=== PATIENT | female | born 1990 | race Caucasian/White ===

== ENCOUNTER 2019-04-07 10:12 | Inpatient (IN) | payer MEDICAID ==
[~2019-04-07] VITALS: Ht 157.5 cm; Wt 71.3 kg
[~2019-04-07 10:12] MED LIST: DENIES; IBUP-1545 PO; PERCOCET PO; PREN1TAB31 PO
[2019-04-08] MEDS ORDERED: LACTATED RINGER'S 1,000 ML IV SCH (10:52)
[2019-04-08 11:00] VITALS: Ht 157.5 cm; Wt 71.3 kg
[2019-04-08] MEDS ORDERED: OXYTOCIN 30 UNITS/LR 500 ML IV PRN ×2 (11:00→16:00)
[2019-04-08] MEDS ORDERED: METHYLERGONOVINE 0.2 MG INJ IM PRN (11:00)
[2019-04-08] MEDS ORDERED: OXYTOCIN 30 UNITS/LR 500 ML IV SCH ×2 (11:00→15:56)
[2019-04-08] MEDS ORDERED: MISOPROSTOL 200 MCG TAB PR PRN ×2 (11:00→16:00)
[2019-04-08] MEDS ORDERED: CEFAZOLIN 2 GM/50 ML (PMX) 50 ML IVPB SCH (11:00)
[2019-04-08] MEDS ORDERED: CARBOPROST 250 MCG INJ IM PRN ×2 (11:00→16:00)
[2019-04-08 11:48] VITALS: BP 119/76; PULSE 75; RESP 18
--- NOTE | 2019-04-08 12:55 | PREAC ---
Date/Time of Note Date/Time of Note DATE: 04/08/19 TIME: 12:54 Anesthesia Eval and Record Evaluation Time Pre-Procedure Interview DATE: 04/08/19 TIME: 12:54 Age 28 Sex female NPO: 8 hrs Preoperative diagnosis IUP Planned procedure Repeat Csection Past Medical History Past Medical History: Includes GI: Obesity : : Surgery & Anesthesia Issues No known issue Meds Anticoagulation: No Beta Karolina within 24 hr: No Reason Beta Karolina not given: Pt. not on B-Karolina Active Scripts Oxycodone Hcl/Acetaminophen (Percocet) 1 Tab Tab, 2 TAB PO Q4H PRN for PAIN LEVEL 6-10, #30 TAB 0 Refills Prov:NICKIE WESTBROOK MD 04/19/15 Ibuprofen* (Ibuprofen*) 800 Mg Tab, 800 MG PO Q8, #20 TAB 0 Refills Prov:NICKIE WESTBROOK MD 04/19/15 Reported Medications Vits #90-Iron Fum-FA ( Formula) 1 Each Tablet, 1 TAB PO DAILY, #1 TAB 04/17/15 [Denies] No Conflict Check 12/17/10 Current Medications Lactated Ringer's 1,000 ml @ 125 mls/hr Q8H IV Last administered on 04/08/19at 11:59; Admin Dose 125 MLS/HR; Start 04/08/19 at 10:52 Cefazolin Sodium/ Dextrose 50 ml @ 100 mls/hr ONCE IVPB ; Start 04/08/19 at 11:00 Oxytocin/Lactated Ringer's 500 ml @ 125 mls/hr POST IV ; Start 04/08/19 at 11:00 Oxytocin/Lactated Ringer's 500 ml @ 0 mls/hr ONCE PRN IV .VAGINAL BLEEDING; Start 04/08/19 at 11:00 Methylergonovine Maleate (Methergine) 0.2 mg ONCE PRN IM .VAGINAL BLEEDING; Start 04/08/19 at 11:00 Carboprost Tromethamine (Hemabate) 250 mcg ONCE PRN IM .VAGINAL BLEEDING; Start 04/08/19 at 11:00 Misoprostol (Cytotec) 1,000 mcg ONCE PRN DC .VAGINAL BLEEDING; Start 04/08/19 at 11:00 Meds reviewed: Yes Allergies Coded Allergies: No Known Drug Allergies (Verified Allergy, Mild, 12/17/10) Allergies Reviewed: Yes Labs/Studies Labs Reviewed: Reviewed by anesthesiologist Result Diagram: 04/08/19 1052 Laboratory Tests 04/08/19 10:52 Blood Bank Test 04/08/19 10:52 Blood Type A POSITIVE Rh Immune Globulin Candidate NO test: Positive Studies: ECG Pre-procedure Exam Last vitals Vital Signs Date Temp Pulse Resp B/P (MAP) Pulse Ox O2 O2 Flow FiO2 Time Delivery Rate 04/08/19 98.5 75 18 119/76 Room Air 11:48 (90) Airway: Adequate mouth opening, Adequate thyromental dist Mallampati: Mallampati II Teeth: Normal Lung: Normal Heart: Normal ASA Physical Status ASA physical status: 2 Emergency: None Planned Anesthetic Neuraxial: Spinal Planned Pain Management Sub-arachniod narcotics, Parenteral pain med Pre-operative Attestations Prior to commencing anesthesia and surgery, the patient was re-evaluated, there was verification of: *The patient's identity *The results of appropriate recent lab work and preoperative vital signs *The above evaluation not changing prior to induction *Anesthetic plan, risk benefits, alternative and complications discussed with patient/family; questions answered; patient/family understands, accepts and wishes to proceed. ZACKERY GONZALEZ MD Apr 08, 2019 12:55
[2019-04-08] MEDS ORDERED: OXYTOCIN 30 UNITS/LR 500 ML BAG IV ONE (13:19)
[2019-04-08] MEDS ORDERED: morphine SULFATE/PF (10 MG/10 ML) INJ ONE (13:20)
[2019-04-08] MEDS ORDERED: ONDANSETRON 4 MG INJ ONE (13:20)
[2019-04-08] MEDS ORDERED: OXYTOCIN 10 UNIT INJ ONE (13:20)
[2019-04-08] MEDS ORDERED: PHENYLephrine 10 MG INJ ONE (13:43)
[2019-04-08] MEDS ORDERED: METOCLOPRAMIDE 10 MG INJ ONE (14:21)
[2019-04-08] MEDS ORDERED: DIPHENHYDRAMINE 50 MG INJ IV PRN ×2 (15:00→19:00)
[2019-04-08] MEDS ORDERED: morphine 2 MG INJ IV PRN ×2 (15:00→19:00)
[2019-04-08] MEDS ORDERED: ONDANSETRON 4 MG INJ IV PRN ×2 (15:00→19:00)
[2019-04-08] MEDS ORDERED: NALOXONE (0.4 MG/ML) INJ IV PRN ×2 (15:00→19:00)
[2019-04-08] MEDS ORDERED: KETOROLAC 30 MG INJ IV PRN ×3 (15:00→19:00)
--- NOTE | 2019-04-08 15:00 | PAC ---
Date/Time of Note Date/Time of Note DATE: 04/08/19 TIME: 14:59 Post-Anesthesia Notes Post-Anesthesia Note Last documented vital signs Vital Signs Date Temp Pulse Resp B/P (MAP) Pulse Ox O2 O2 Flow FiO2 Time Delivery Rate 04/08/19 98.5 75 18 119/76 Room Air 11:48 (90) Activity: WNL Respiratory function: WNL Cardiovascular function: WNL Mental status: Baseline Pain reasonably controlled: Yes Hydration appropriate: Yes Nausea/Vomiting absent: Yes Comments BP:122/56, P:72, Spo2:100%, T:98,8 ZACKERY GONZALEZ MD Apr 08, 2019 15:00
--- NOTE | 2019-04-08 15:47 | HP ---
Date/Time of Note Date/Time of Note DATE: 04/08/19 TIME: 15:44 OB - History Hx of Present Free Text/Dictation April 08, 2019 Chief Complaint: Patient for repeat section with BTL : 4 Para: 3 Care: Good Care Other Concerns: 28-year-old G4, P3 with IUP at 39 weeks and 2 days and history of x3 here today for repeat section and bilateral tubal sterilization. Patient has care with Dr.Sedi machuca, who was assigned to pa for coverage. No complication during . ALAN April 11, 2019. Consent for bilateral tubal sterilization Past Family/Social History * Past Medical, Surgical, Family and Obstetric Histories reviewed from chart. Blood Type: A+ Rubella: immune RPR/VDRL: Negative GBS Status: Unknown HBsAG: Negative OB Admission Exam Vital Signs Vital Signs Vital Signs Date Temp Pulse Resp B/P (MAP) Pulse Ox O2 O2 Flow FiO2 Time Delivery Rate 04/08/19 98.5 75 18 119/76 Room Air 11:48 (90) Physical Exam HEENT: WNL Heart: Rhythm Normal Lungs: Clear Abdomen: WNL Extremities: Normal Reflexes: Normal Cervical Dilatation: None Effacement: 0% Station: -2 Membranes: Intact Heart Rate: 130's Accelerations: Accelerations Present Decelerations: No Decelerations Varibility: Moderate Contractions on Admission: < 5 Minutes Apart Intensity: Mild Last 72 hours Lab Results CBC & BMP 04/08/19 10:52 OB Assessment/Plan Other Assessment: IUP at 39 weeks and 2 days History of section x3 Scheduled for repeat section with bilateral tubal sterilization Risk and benefits of surgery including risk of infection bleeding damage to surrounding structures including bowel or bladder risk of anesthesia risk of blood transfusion including but not limited to blood borne infection including HIV, hepatitis B and C and transfusion reaction discussed with the patient in detail. Patient confirms that she desires to have sterilization. Risk of sterilization including but not limited to failure less than 1% as well as ectopic in case of failure discussed with the patient. Patient verbalized understanding. Consent was signed. Or anesthesia and nursing staff was notified. All questions were answered to patient with satisfaction. Procedure repeat section and BTL RAKESH CLARKE MD Apr 08, 2019 15:47
--- NOTE | 2019-04-08 15:56 | OPR ---
Operative Report Planned Procedure Free Text/Dictation April 08, 2019 Procedure date Apr 08, 2019 Procedure(s) repeat section bilateral tubal sterilization Performed by see signature line Robotic Machine Tender Production: BETSY CHAVEZ MD Anesthesiologist: ZACKERY GONZALEZ MD Pre-procedure diagnosis 1. IUP at 39 weeks and 2 days 2. History of section x3 3. Desires bilateral tubal sterilization repeat [id number] Anesthesia Type: [id number] spinal Post-Procedure Post-procedure diagnosis Same Thin lower uterine segment Adhesions of Parietal peritoneum to the anterior abdominal wall and lower uterine segment Findings Live Baby [Boy], Apgars [9,9] and [], weight 7 lbs and 3 oz, position vertex presentation Adhesions of parietal peritoneum to the lower uterine segment and anterior a bdominal wall Lysis of adhesion was done Normal uterus ovaries and tubes Estimated Blood Loss: 500 - 600 mls Specimen(s) Cord blood Grafts/Implant(s) none Complication(s) none Pt Condition post procedure: stable Disposition: PACU Procedure Description 28-year-old G4, P3 with IUP at 39 weeks and 2 days and care with Dr. vito Bacon, has been scheduled for repeat section with bilateral tubal sterilization. Risk and benefit of procedure discussed with the patient including risk of infection, bleeding, damage to surrounding structures including bowel and bladder and risk of blood transfusion including but not limited to blood borne infection including HIV, hepatitis B and C and transfusion reaction. Risk of anesthesia as well as risk of tubal sterilization including risk of failure and risk of ectopic in case of failure as well as risk of regret discussed with patient. Patient verbalized understanding. All questions were answered. Consent was signed. She received 2 g Ancef prior to be taken to the OR. She was taken to the OR placed in the dorsal supine position with a leftward tilt. Timeout procedure was completed. Prepped and draped in a sterile fashion. After reassurance about adequate spinal anesthesia a Pfannenstiel skin incision in the area of prior skin incision was made and was carried down to the underlying layer of fascia using scalpel Bovie. In the superior aspect of fascial incision was grasped using [place], was elevated and was dissected off of the rectus muscle sharply using Bovie. Inferior aspect of the fascial incision in a similar fashion grasped using [place] clamp elevated and was dissected off of the parameters muscle in a similar fashion. Rectus muscle was dissected in the midline. Parietal peritoneum was identified. It was grasped using a Dory clamp. A careful attention to underlying structures entered using scalpel. Intra-abdominal cavity entered without any complication. Adhesion bands of the parietal peritoneum to the lower uterine segment and anterior abdominal wall was identified and was gently with careful attention to the structures around was lysed. Then the lower uterine segment was identified. Lower uterine segment was noted to be thin. It was entered using scalpel. Amniotic sac was ruptured. Clear amniotic fluid noted. Baby was in vertex presentation. The head was grasped and was brought up to the incision and while assistant professor of geography was applying fundal pressure the head was delivered in anterior shoulder posterior shoulder and the rest of the body delivered without any complication. Nose and mouth was suctioned. Delayed cord clamp was obtained after 3o seconds Baby was then handed to the waiting NICU team. Cord blood was obtained. Baby was a boy with 9 and 9 and weight 7 pounds and 3 pounds. Then the placenta was delivered manually intact and complete. Uterus was cleared of all clots and debris's. Lower uterine segment repaired in 2 layers using 1-0 Monocryl. Of note the uterus was exteriorized. Ovaries and tubes were noted to be normal. After reassurance about the uterine incision hemostasis then procedure proceeded with performing bilateral tubal sterilization. First the right tube was grasped using back-up clamp and after making a small window in the avascular area of the nasal salpinx area using plain gut proximal and distal stump of the tube was doubly ligated. Then salpingectomy performed in the right side and this resected segment of the tube was sent to pathology. Reassurance about the hemostasis of the stump with 2+ reassured. Procedure proceeded in a similar fashion in the left side as well. Hemostasis was noted to be complete. Incision rechecked in reassured that has adequate hemostasis. Gutters were cleared of all clots and debris's. Then the uterus was returned back to the abdomen. Parietal peritoneum was repaired using 2-0 Vicryl in a continuous fashion. Hemostasis of muscle obtained. Then the rectus muscle was reapproximated using 1-0 Vicryl in a continuous fashion. Irrigation of suppleness tissue performed using normal saline. Suppleness tissue reapproximated in interrupted fashion using 2-0 plain gut. The skin was reapproximated using 3-0 Monocryl in a subcortical fashion. In the end then was applied over the incision. Fundus was firm. Hemostasis was complete. Patient tolerated the procedure well. Sponge, needle counts were correct x2. Patient was then transferred to recovery room in stable condition. RAKESH CLARKE MD Apr 08, 2019 15:56
[2019-04-08] MEDS ORDERED: NACL 0.9% 3 ML SYG IV SCH (16:00)
[2019-04-08 18:25] VITALS: BP 115/74; PULSE 80; RESP 17
[2019-04-08 19:50] VITALS: BP 107/62; PULSE 72; RESP 18
[2019-04-08] MEDS ORDERED: IBUPROFEN 800 MG TAB PO SCH (22:00)
[2019-04-08 23:50] VITALS: BP 114/71; PULSE 74; RESP 19
[2019-04-09] MEDS: LACTATED RINGER'S 1,000 ML IV SCH ×2 (01:37→21:42)
[2019-04-09 03:50] VITALS: BP 102/56; PULSE 74; RESP 18
[2019-04-09 08:00] VITALS: BP 100/57; PULSE 78; RESP 16
[2019-04-09] MEDS: LANOLIN HPA 1 PKT TOP PRN (08:15)
[2019-04-09 12:00] VITALS: BP 109/62; PULSE 89; RESP 89
[2019-04-09 16:00] VITALS: BP 108/71; PULSE 97; RESP 16; RESP 18
[2019-04-09] MEDS: HYDROCODONE/APAP (5/325) TAB PO PRN ×2 (16:25→20:56)
[2019-04-09 19:52] VITALS: BP 114/77; PULSE 80; RESP 18
[2019-04-09] MEDS: IBUPROFEN 600 MG TAB PO SCH (19:52)
[2019-04-10] MEDS: IBUPROFEN 600 MG TAB PO SCH ×6 (00:02→23:51)
[2019-04-10] MEDS: LACTATED RINGER'S 1,000 ML IV SCH (01:00)
[2019-04-10 03:45] VITALS: BP 123/81; PULSE 72; RESP 19
[2019-04-10 08:00] VITALS: BP 120/77; PULSE 66; RESP 18
[2019-04-10] MEDS: LANOLIN HPA 1 PKT TOP PRN (08:45)
[2019-04-10] MEDS: HYDROCODONE/APAP (5/325) TAB PO PRN ×2 (08:45→12:59)
[2019-04-10] MEDS ORDERED: BISACODYL 10 MG SUPP PR PRN (15:30)
[2019-04-10 16:15] VITALS: BP 123/86; PULSE 73; RESP 18
--- NOTE | 2019-04-10 17:29 | PN ---
Date/Time of Note Date/Time of Note DATE: 04/10/19 TIME: 17:29 OB Subjective Subjective Subjective Subjective: Patient without complaints. Tolerating a regular diet. Breast-feeding. Lochia within normal limits. + ambulating. + Flatus. Objective: Vital signs within normal limits. H/H: 9.3/.1 General: No apparent distress. Abdomen: Fundus firm and at umbillicus Incision: C/D/I Extremities nontender to palpation. Assessment/plan: 1. day RCS/BTL #1. routine pp care. 2. Anemia acute blood loss-expectant. 3. Skin-wound consult. VANESSA GARCIA MD Apr 10, 2019 17:29
[2019-04-10] MEDS ORDERED: OXYCODONE/ACETAMINOPHEN (5/325) TAB PO PRN (17:30)
[2019-04-10 19:20] VITALS: BP 110/70; RESP 19
[2019-04-11 04:00] VITALS: BP 110/70; PULSE 63; RESP 20
[2019-04-11] MEDS: IBUPROFEN 600 MG TAB PO SCH ×2 (05:42→12:21)
[2019-04-11 08:00] VITALS: BP 115/82; PULSE 72; RESP 16
[2019-04-11] MEDS: OXYCODONE/ACETAMINOPHEN (5/325) TAB PO PRN ×2 (08:08→13:40)
[2019-04-11] MEDS ORDERED: FERROUS SULFATE (EC) 325 MG TAB PO SCH (09:00)
--- NOTE | 2019-04-11 14:02 | DS ---
Date/Time of Note Date/Time of Note DATE: 04/11/19 TIME: 14:02 Obstetrical Discharge Record Final Diagnosis Final Diagnosis: Term delivered Other Final Diagnosis Subjective: Patient without complaints. Tolerating regular diet. ambulating. voiding. +flatus. Objective: Vital signs stable and wnl H/H: 10.7/32.4 General: No apparent distress. Abdomen: Fundus firm two fingerbreadths below umbillicus Incision: C/D/I Extremities nontender to palpation. Assessment/plan: 1. day#3 cs btl-T4 P3 presented to the hospital at 39 weeks and 2 days for repeat section and bilateral tubal ligation. Underwent a section and bilateral tubal sterilization on 04/08/2019. Her hospital course was uncomplicated. 2. Anemia acute blood loss-ferrous sulfate Condition on Discharge Physical Assessment Patient Condition: Stable VANESSA GARCIA MD Apr 11, 2019 14:02
[2019-04-11] MEDS ORDERED: IBUP-1542 PO (14:04)
[2019-04-11] MEDS ORDERED: FER325 PO (14:04)
--- NOTE | 2019-04-12 18:20 | DELSUM ---
Delivery Summary A-C Datetime Report Generated by CPN: 04/12/2019 18:20 DELIVERY PERSONNEL Repair Miller: Lomeli, Rafaela MATERNAL INFORMATION Delivery Anesthesia: Spinal Medications in Delivery: ANCEF, ZITHROMAX, ZOFRAN Delivery QBL (ml): 600 Placenta Cultured: No Maternal Complications: None LABOR SUMMARY EDC: 04/13/2019 00:00 No. Babies in Womb: 1 Attempted: No Labor Anesthesia: None LABOR INFORMATION Reason for Induction: Not Applicable Group B Beta Strep: Not Done Antibiotics # of Doses: 2 Antibiotics Time of Last Dose: 04/08/2019 13:40 Steroids Given: None Reason Steroids Not Administered: Not Applicable MEMBRANES Membranes Rupture Method: Artificial Rupture of Membranes: 04/08/2019 13:58 Length of Rupture (hr): 0.00 Amniotic Fluid Color: Clear Amniotic Fluid Amount: Moderate Amniotic Fluid Odor: None STAGES OF LABOR Stage 3 hr: 0 Stage 3 min: 1 CSECTION DELIVERY Primary Indication: Repeat Elective Secondary Indication: >2 Previous CSections CSection Urgency: Elective CSection Incidence: Repeat Labor: N/A Elective: Elective CSection Incision: Lower Uterine Transverse Sterilization Procedure: [place] BABY A INFORMATION Infant Delivery Date/Time: 04/08/2019 13:58 Method of Delivery: Born in Route : No : N/A Forceps: N/A Vacuum Extraction: N/A Shoulder Dystocia : No SHOULDER DYSTOCIA BABY A Infant Delivery Date/Time: 04/08/2019 13:58 PRESENTATION/POSITION BABY A Presentation: Cephalic Cephalic Presentation: Vertex Vertex Position: Left Occipital Anterior Breech Presentation: N/A PLACENTA INFORMATION BABY A Placenta Delivery Time : 04/08/2019 13:59 Placenta Method of Delivery: Manual Removal Placenta Status: Delivered SCORES BABY A Heart Rate 1 min: >100 bpm Resp Effort 1 min: Good Cry Reflex Irritability 1 min: Cough/Sneeze/Pulls Away Muscle Tone 1 min: Active Motion Color 1 min: Body [place], Extremit Blue Resuscitation Effort 1 min: Tactile Stimulation SCORE 1 MIN: 9 Heart Rate 5 min: >100 bpm Resp Effort 5 min: Good Cry Reflex Irritability 5 min: Cough/Sneeze/Pulls Away Muscle Tone 5 min: Active Motion Color 5 min: Body [place], Extremit Blue Resuscitation Effort 5 min: Tactile Stimulation SCORE 5 MIN: 9 INFORMATION BABY A Gestational Age at Delivery: 39.2 Gestational Status: Full Term- 39- 40.6 Weeks Infant Outcome : Liveborn, with signs of life Condition : Stable Sex: Male IDENTIFICATION/MEDS BABY A ID Band Number: [id number] ID Band Location: Right Leg; Left Arm Sensor Applied: Yes Sensor Number: [id number] Sensor Location : Cord Clamp Vitamin K Given : Not Given Erythromycin Given: Not Given WEIGHT/LENGTH BABY A Infant Birthweight (gm): 3260 Weight (lb): 7 Infant Weight (oz): 3 Infant Length (in): 20.00 Length (cm): 50.80 CORD INFORMATION BABY A No. Cord Vessels: 3 Nuchal Cord : N/A Cord Blood Taken: Yes Suction: Mouth; Nose ASSESSMENT BABY A Complications: Other Physical Findings at Delivery: Within Normal Limits Respirations: Appears Normal Grind Operator/ALS Called : Yes Infant Care By: RT AND CHRIS QUINONEZ Transferred To: Remains with Mother
== END 2019-04-11 17:05 | disposition home or self-care (01) | DRG 784 ==
LOC: EDSTATUS 10:12 → L-D 04-08 10:18 → PP1 04-08 18:41
PROVIDERS: ADMIT Obstetrics & Gynecology; ATTEND Obstetrics & Gynecology
PROC: 0UB70ZZ Excision of Bilateral Fallopian Tubes, Open Approach (ICD-10-PCS; 2019-04-08)
PROC: 0JNC0ZZ Release Pelvic Region Subcutaneous Tissue and Fascia, Open Approach (ICD-10-PCS; 2019-04-08)
PROC: 10D00Z1 Extraction of Products of Conception, Low, Open Approach (ICD-10-PCS; principal; 2019-04-08 12:30)
DX: O34.211 Maternal care for low transverse scar from previous cesarean delivery (principal); O99.02 Anemia complicating childbirth; D62 Acute posthemorrhagic anemia; O99.89 Other specified diseases and conditions complicating pregnancy, childbirth and the puerperium; N73.6 Female pelvic peritoneal adhesions (postinfective); Z3A.39 39 weeks gestation of pregnancy; Z37.0 Single live birth; Z30.2 Encounter for sterilization
CPT/HCPCS: 85025; 85610; 85730; 86592; 86850; 86900; 86901; 88302; 99464; J0690; J1885; J2274; J2370; J2405; J2590; J2765; J7120